=== PATIENT | female | born 2000 | race Two or more races ===

== ENCOUNTER 2023-04-23 08:03 | Outpatient (CLI) | payer OTHER | END 2023-04-23 08:19 | disposition home or self-care (01) | LOC: LAB 08:03 | PROVIDERS: ATTEND Internal Medicine Hematology & Oncology | DX: D50.8 Other iron deficiency anemias (principal); R79.9 Abnormal finding of blood chemistry, unspecified; I10 Essential (primary) hypertension; R74.02 Elevation of levels of lactic acid dehydrogenase [LDH]; K76.89 Other specified diseases of liver; D68.8 Other specified coagulation defects; D68.01 Von Willebrand disease, type 1; D68.4 Acquired coagulation factor deficiency; D68.32 Hemorrhagic disorder due to extrinsic circulating anticoagulants; D66 Hereditary factor VIII deficiency ==

== ENCOUNTER 2024-01-21 08:14 | Outpatient (CLI) | payer OTHER ==
[2024-01-21 11:35] LABS: HEMATOCRIT 38.3 % (36.0-45.00); HEMOGLOBIN 12.9 g/dL (12.0-15.00); MEAN CELL VOLUME 73.7 fL (80.00-100.00); MEAN CORPUSCULAR HEMOGLOBIN 24.8 pg (27.00-32.0); MEAN CORPUSCULAR HGB CONC 33.7 g/dl (32.0-36.0); PLATELET COUNT 222 K/uL (150-450); RED CELL DISTRIBUTION WIDTH 17.1 % (11.5-14.5)
[2024-01-21 12:33] LABS: ALBUMIN 4.2 gm/dL (3.4-5.0); BILIRUBIN TOTAL 0.4 mg/dL (0.3-1.2); CALCIUM 9.3 mg/dL (8.5-10.1); CREATININE SERUM 0.71 mg/dL (0.55-1.02); GFR 103.91; POTASSIUM 4.25 mEq/L (3.5-5.1); TOTAL PROTEIN 8.2 gm/dL (6.4-8.2); TSH 2.24 uIU/mL (0.358-3.74)
[2024-01-22 12:44] LABS: FOLIC ACID > 20.00 ng/ml (4.78-20); VITAMIN D3 25 HYDROXY 23.49 ng/ml (30-120)
[2024-01-23 11:36] LABS: MANUAL PLATELET COUNT 280
[2024-01-23 11:37] LABS: PLATELET ESTIMATE NORMAL (NORMAL)
== END 2024-01-21 08:28 | disposition home or self-care (01) ==
LOC: LAB 08:14
PROVIDERS: ATTEND Internal Medicine Hematology & Oncology
DX: D68.4 Acquired coagulation factor deficiency (principal); D68.32 Hemorrhagic disorder due to extrinsic circulating anticoagulants; D50.8 Other iron deficiency anemias; D51.3 Other dietary vitamin B12 deficiency anemia; R79.9 Abnormal finding of blood chemistry, unspecified; K76.89 Other specified diseases of liver; R94.02 Abnormal brain scan; I10 Essential (primary) hypertension; D55.0 Anemia due to glucose-6-phosphate dehydrogenase [G6PD] deficiency; E55.9 Vitamin D deficiency, unspecified; D51.1 Vitamin B12 deficiency anemia due to selective vitamin B12 malabsorption with proteinuria; E03.8 Other specified hypothyroidism; E06.3 Autoimmune thyroiditis